=== PATIENT | male | born 1930 | race Caucasian/White ===

== ENCOUNTER 2019-01-03 20:24 | Emergency (ER) | payer OTHER ==
[~2019-01-03] VITALS: Ht 170.2 cm; Wt 63.5 kg
[2019-01-03 20:35] VITALS: BP_SYST 146
[2019-01-03 22:35] VITALS: BP_SYST 130
== END 2019-01-03 22:40 | disposition home or self-care (01) ==
LOC: SED 20:24
DX: L02.01 Cutaneous abscess of face (principal); R03.0 Elevated blood-pressure reading, without diagnosis of hypertension; K21.9 Gastro-esophageal reflux disease without esophagitis; Z90.49 Acquired absence of other specified parts of digestive tract
CPT/HCPCS: 99283